=== PATIENT | male | born 2000 | race Caucasian/White ===

== ENCOUNTER 2020-09-02 13:25 | Emergency (ER) | payer OTHER ==
[~2020-09-02] VITALS: Ht 170.2 cm; Wt 50.0 kg
[2020-09-02] MEDS ORDERED: MORPHINE SULFATE 10 MG/ML VIAL. IV ONE (13:30)
[2020-09-02] MEDS ORDERED: MORPHINE SULFATE 10 MG/ML VIAL. ONE (13:37)
[2020-09-02] MEDS ORDERED: IOHEXOL 350 MG/ML 100 ML VIAL. IV ONE (13:45)
[2020-09-02] MEDS ORDERED: CONTRAST GIVEN. MC PRN (14:00)
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
[2020-09-02 15:23] VITALS: BP 108/77
== END 2020-09-02 15:23 | disposition home or self-care (01) ==
LOC: ER 13:25
DX: S71.132A Puncture wound without foreign body, left thigh, initial encounter (principal); F17.200 Nicotine dependence, unspecified, uncomplicated; Z98.890 Other specified postprocedural states; X95.8XXA Assault by other firearm discharge, initial encounter; Y93.89 Activity, other specified; Y92.89 Other specified places as the place of occurrence of the external cause; Y99.8 Other external cause status
CPT/HCPCS: 73706; 96374; 99285; J2270; Q9967